=== PATIENT | female | born 1980 | race Caucasian/White ===

== ENCOUNTER 2019-08-15 08:53 | Day surgery (SDC) | payer MEDICAID ==
[~2019-08-15] VITALS: Ht 162.6 cm; Wt 66.7 kg
[2019-08-15 10:26] LABS: HCG,QUAL RESULT NEGATIVE (NEGATIVE)
[2019-08-15] MEDS ORDERED: LR 1,000 ML IV SCH (11:42)
[2019-08-15] MEDS ORDERED: MEPERIDINE HCL/PF 25 MG/ML DISP.SYRIN IVP PRN (11:45)
[2019-08-15] MEDS ORDERED: HYDROmorphone 1 MG INJ. 1 MG/ML AMPUL IVP PRN (11:45)
[2019-08-15] MEDS ORDERED: HYDROmorphone 2 MG/ML VIAL IVP PRN ×2 (11:45)
[2019-08-15] MEDS ORDERED: HYDROmorphone 2 MG/ML VIAL ONE (12:28)
[2019-08-15 13:05] VITALS: BP_SYST 92
[2019-08-15] MEDS ORDERED: DIPHENHYDRAMINE INJ 50 MG/ML VIAL IVP ONE (14:45)
[2019-08-15] MEDS ORDERED: KETOROLAC TROMETHAMINE 30 MG VIAL IVP ONE (14:45)
[2019-08-15] MEDS ORDERED: KETOROLAC TROMETHAMINE 30 MG VIAL ONE (14:52)
== END 2019-08-15 16:05 | disposition home or self-care (01) ==
LOC: SDS 08:53 → SMU 09:15 → SDS 16:05
PROVIDERS: ATTEND Obstetrics & Gynecology
DX: N92.0 Excessive and frequent menstruation with regular cycle (principal); D25.1 Intramural leiomyoma of uterus; E03.9 Hypothyroidism, unspecified; D50.0 Iron deficiency anemia secondary to blood loss (chronic); Z91.048 Other nonmedicinal substance allergy status
CPT/HCPCS: 84703; 93005; J1170; J1885; J7120

== ENCOUNTER 2019-11-05 09:14 | Day surgery (SDC) | payer MEDICAID ==
[~2019-11-05] VITALS: Ht 162.6 cm; Wt 73.9 kg
[2019-11-05 10:54] LABS: HCG,QUAL RESULT NEGATIVE (NEGATIVE)
[2019-11-05] MEDS ORDERED: HYDROcodone/ACETAMIN 5-325 MG TAB (NORCO/ VICODIN) PO PRN (11:30)
[2019-11-05] MEDS ORDERED: ONDANSETRON HCL 4 MG/2 ML VIAL IVP PRN ×2 (11:30)
[2019-11-05] MEDS ORDERED: fentaNYL CITRATE/PF 100 MCG/2 ML AMP IVP PRN ×2 (11:30)
[2019-11-05] MEDS ORDERED: OXYCODONE/ACETAMINOPHEN 5-325 TABLET PO PRN (11:30)
[2019-11-05] MEDS ORDERED: IBUPROFEN 800 MG TABLET PO PRN (11:30)
[2019-11-05] MEDS ORDERED: KETOROLAC TROMETHAMINE 30 MG VIAL IVP PRN (11:30)
[2019-11-05] MEDS ORDERED: fentaNYL CITRATE/PF 100 MCG/2 ML AMP ONE (13:20)
[2019-11-05] MEDS ORDERED: MIDAZOLAM HCL 5 MG/ML VIAL (VERSED) IV ONE (13:20)
[2019-11-05] MEDS ORDERED: cefOXitin 2 GM IVPB PREMIX 50 ML IV ONE (13:20)
[2019-11-05] MEDS ORDERED: NS 1000 ML IV.SOLN IV ONE (13:20)
[2019-11-05] MEDS ORDERED: ROCURONIUM BROMIDE 10 MG/ML (ZEMURON) ONE (13:20)
[2019-11-05] MEDS ORDERED: PROPOFOL 200MG/ 20ML VIAL (DIPRIVAN) IV ONE (13:20)
[2019-11-05] MEDS ORDERED: LIDOCAINE 2%, 20 ML MDV ONE (13:20)
[2019-11-05] MEDS ORDERED: SEVOFLURANE 15 MIN GAS INH ONE (13:20)
[2019-11-05] MEDS ORDERED: NS IRRIG SOLN 1000 ML IR ONE (13:20)
[2019-11-05] MEDS ORDERED: LR 1,000 ML IV.SOLN IV ONE (13:20)
[2019-11-05] MEDS ORDERED: BUPIVACAINE /PF 0.5% 30 ML VIAL ONE (13:20)
[2019-11-05 14:50] VITALS: BP_SYST 112
[2019-11-05] MEDS: KETOROLAC TROMETHAMINE 30 MG VIAL IVP PRN ×2 (14:56→20:37)
--- NOTE | 2019-11-05 15:00 | NUR ---
ADMISSION NOTE RECEIVED PT VIA [facility] ACCOMPANIED BY ER NURSE. PT LETHARGIC BUT ABLE TO ANSWER QUESTIONS. AT BEDSIDE. IVF INFUSING WELL. SCDS IN PLACE. 4 ABDOMINAL INCISIONS COVERED WITH BANDAGES, NO DRAINAGE, NO ODOR, BANDAGES IN INTACT. CALL LIGHT WITHIN REACH, BED IN LOW AND LOCKED POSITION WITH BED ALARM ON.
[2019-11-05 15:08] VITALS: BP_SYST 112
[2019-11-05] MEDS: HYDROmorphone 2 MG TAB PO PRN ×2 (16:06→20:36)
--- NOTE | 2019-11-05 16:10 | NUR ---
PAIN MEDICATIONS PT RECEIVED TORADOL AND ZOFRAN EARLIER. PAIN MEDICATION NOT EFFECTIVE. EDUCATED PT ON USES AND SIDE EFFECTS OF DILAUDID, PT VERBALIZED UNDERSTANDING. PRN DILAUDID INDICATED FOR SEVERE PAIN, DILAUDID PO ADMINISTERED. WILL CONTINUE TO MONITOR.
--- NOTE | 2019-11-05 19:32 | NUR ---
CLOSING NOTE DISCONTINUED GLEZ CATHETER. OUTPUT 600CC, CLEAR AND YELLOW. PT TOLERATED WELL. IV SALINE LOCKED. PT FINISHED DINNER, TOLERATED WELL. PAIN CONTROLLED AT THIS TIME. ALL NEEDS MET THROUGHOUT SHIFT CALL LIGHT WITHIN REACH, BED IN LOW AND LOCKED POSITION WITH BED ALARM ON. PT CARE ENDORSED TO INPATIENT PHARMACIST RNMARCELO.
--- NOTE | 2019-11-05 19:50 | NUR ---
OPENING NOTES Patient is resting in bed, awake, breathing evenly and nonlabored on room air, at bedside. Patient has an IV on the right arm 18g, patent and benign, no s/s of infection or infiltration noted at this time. Educated patient and on plan of care, fall/safety precautions, and call light system, patient and stated understanding with return demonstration. Bed is locked, armed, and at lowest position. No s/s of distress at this time, no other needs at this time, will continue to monitor.
[2019-11-05 19:55] VITALS: BP_SYST 116
--- NOTE | 2019-11-05 20:45 | NUR ---
PAIN MEDICATIONS/ROUNDS Patient is resting in bed, awake, breathing evenly and nonlabored on room air, at bedside. Patient complained of pain in the abdomen and back, level 8/10. Educated patient on pain medications, pain management, and nonpharmacological interventions, patient stated understanding. Administered pain medications, patient tolerated them well. No other needs at this time. Fall/safety precautions, will continue to monitor.
--- NOTE | 2019-11-05 21:45 | NUR ---
ROUNDS Assisted patient on the bathroom, patient had first void after Gonzalez catheter was removed earlier. Patient denies pain, no s/s of distress at this time, no other needs at this time. Sister Gwendolyn at bedside. Fall/safety precautions, will continue to monitor.
--- NOTE | 2019-11-05 23:40 | NUR ---
ROUNDS Patient is resting in bed, awake, breathing evenly and nonlabored on room air, sister at bedside. Patient requested for some snacks which was provided. No s/s of distress at this time, no other needs at this time. Fall/safety precautions.
[2019-11-06 00:28] VITALS: BP_SYST 106
--- NOTE | 2019-11-06 01:30 | NUR ---
ROUNDS Patient is resting in bed, eyes closed, breathing evenly and nonlabored on room air, sister at bedside. No s/s of distress at this time, no other needs at this time. Fall/safety precautions. Will continue to monitor.
[2019-11-06] MEDS: KETOROLAC TROMETHAMINE 30 MG VIAL IVP PRN (03:11)
[2019-11-06] MEDS: HYDROmorphone 2 MG TAB PO PRN (03:11)
--- NOTE | 2019-11-06 03:20 | NUR ---
PAIN MEDICATION/ROUNDS Patient is resting in bed, awake, breathing evenly and nonlabored on room air, sister at bedside. Patient was complaining of pain, reinforced teaching regarding pain medications, patient stated understanding, pain medications were given, patient tolerated it well. No other needs at this time. Fall/safety precautions.
--- NOTE | 2019-11-06 04:30 | NUR ---
PAIN MEDICATION/ROUNDS Patient is resting in bed, awake, breathing evenly and nonlabored on room air, sister at bedside. Patient was complaining of MILD pain, reinforced teaching regarding pain medications, patient stated understanding, pain medication were given, patient tolerated it well. No other needs at this time. Fall/safety precautions.
--- NOTE | 2019-11-06 06:34 | NUR ---
CLOSING NOTES Patient is resting in bed, eyes closed, breathing evenly and nonlabored on room air, sister at bedside. No s/s of distress at this time, no other needs at this time. Fall/safety precautions. Needs met throughout the shift. Will endorse care to morning shift RN.
--- NOTE | 2019-11-06 07:30 | NUR ---
Opening Note received bedside SBAR report from overnight cashier RN, patient resting in bed, respirations even and unlabored on room air, no acute distress noted, patient reports pain is controlled at this time, educated patient on use of call light and asked to call for assistance, patient verbalized understanding, call light in reach, educated patient on use of bed alarm for patient safety, patient refusing bed alarm, bed in low and locked position, patients family at bedside.
[2019-11-06 08:00] VITALS: BP_SYST 105
--- NOTE | 2019-11-06 08:48 | NUR ---
Nutrition Update Kerwin Scale 17 noted. Pt admitted for excessive and frequent menstruation w/ regular. Diet: regular BMI: 28 kg/m2 RD to follow per nutrition care standards.
[2019-11-06 08:57] VITALS: BP_SYST 105
--- NOTE | 2019-11-06 09:05 | NUR ---
Breakfast patient sitting up in bed eating breakfast, patient tolerating well, patient denies any nausea, patient reports pain is controlled at this time.
[2019-11-06] MEDS ORDERED: HYDR-4272 PO (09:14)
[2019-11-06] MEDS ORDERED: IBUP-1971 PO (09:15)
[2019-11-06] MEDS ORDERED: DOCU-144 PO (09:15)
--- NOTE | 2019-11-06 09:52 | NUR ---
Discharge provided patient with discharge packet and instructions, patient verbalized understanding, written prescriptions provided, IV catheter removed, catheter intact, no bleeding, surgical dressings to abdomen clean, dry, and intact, no bleeding, patient reports small amount of vaginal spotting on natalio pad, patient reports pain is controlled at this time, patient denies any nausea, all belongings sent with patient, patient accompanied by sister Gwendolyn for discharge home, patient taken to parking lot via wheelchair.
== END 2019-11-06 09:52 | disposition home or self-care (01) ==
LOC: SDS 09:14 → SMU 09:16 → SDS 11-06 09:52
PROVIDERS: ATTEND Obstetrics & Gynecology
DX: N92.0 Excessive and frequent menstruation with regular cycle (principal); D25.1 Intramural leiomyoma of uterus; D25.0 Submucous leiomyoma of uterus; N72 Inflammatory disease of cervix uteri
CPT/HCPCS: 58570; 64488; 84703; 88307; C1727; J0694; J1885 ×2; J2001; J2250; J2405; J2704; J3010; J3490; J7030; J7120; S2900; E0190